=== PATIENT | male | born 1985 | race Caucasian/White ===

== ENCOUNTER 2020-02-09 18:18 | Emergency (ER) | payer MEDICAID ==
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
== END 2020-02-09 19:10 | disposition home or self-care (01) ==
LOC: KA.ED 18:18
DX: S00.01XA Abrasion of scalp, initial encounter (principal); M54.2 Cervicalgia; F17.210 Nicotine dependence, cigarettes, uncomplicated; Y04.0XXA Assault by unarmed brawl or fight, initial encounter
CPT/HCPCS: 99283